=== PATIENT | female | born 1960 | race Caucasian/White ===

== ENCOUNTER 2020-12-17 13:07 | Emergency (ER) | payer MEDICAID ==
[~2020-12-17] VITALS: Ht 175.3 cm; Wt 54.5 kg
[~2020-12-17 13:07] MED LIST: ALPR0.5T PO; ARIP5TAB13 PO; BUPR150T22 PO; DEXT30TA PO; HYDR1TAB53 PO; LEVO200T5 PO; PARO40TA3 PO
--- NOTE | 2020-12-17 14:28 | NUR ---
ROSANNA ANNE FROM HOME WHERE SIGNIFICANT OTHER NANCY SU ([phone]) AND FRIEND WHO IS AN DOOR ASSEMBLER DANNY LI ([phone]) STATE A SIGNIFICANT CHANGE IN MENTATION OVER THE PAST 2 DAYS. IT IS STATED THAT PT IS NORMALLY AXOX4 AND TODAY AXOX2.
[2020-12-17] MEDS ORDERED: LORazepam 1MG TABLET PO ONE (14:30)
[2020-12-17 14:49] LABS: BASOPHILS % (AUTO) 0 % (0-1); EOSINOPHILS % (AUTO) 0 % (1-7); LYMPHOCYTES % (AUTO) 18 % (22-44); MEAN CORPUSCULAR HEMOGLOBIN 34.2 pg (27.0-34.8); MEAN CORPUSCULAR HGB CONC 33.7 g/dL (32.4-35.8); MEAN PLATELET VOLUME 6.7 fL (7.4-10.4); MONOCYTES % (AUTO) 11 % (2-9); NEUTROPHILS % (AUTO) 70 % (42-75); PLATELET COUNT 369 x10^3/uL (130-400); RED BLOOD COUNT 4.25 x10^6/uL (3.82-5.3); RED CELL DISTRIBUTION WIDTH 15.1 % (9.6-15.2)
--- NOTE | 2020-12-17 14:55 | NUR ---
OBTAINED URINE, SENT TO LAB, BACK TO BED, GAIT SLOW AND UNSTEADY WITH SBA
[2020-12-17 14:58] LABS: ALBUMIN 3.7 g/dL (3.4-5.0); ANION GAP 11 mmol/L (5-15); CALCIUM 9.1 mg/dL (8.5-10.1); CHLORIDE 109 mmol/L (98-107)
[2020-12-17 15:02] LABS: SALICYLATE LEVEL < 1.7 mg/dL (2.8-20.0)
[2020-12-17 15:12] LABS: ALANINE AMINOTRANSFERASE 23 U/L (12-78); ALKALINE PHOSPHATASE 155 U/L (45-117); BILIRUBIN,TOTAL 0.6 mg/dL (0.2-1.0); CREATININE 0.74 mg/dL (0.55-1.02); TOTAL PROTEIN 7.2 g/dL (6.4-8.2)
[2020-12-17 15:20] LABS: AMPHETAMINE SCREEN, URINE Negative (Negative); BARBITURATE SCREEN, URINE Negative (Negative); BENZODIAZEPINE SCREEN, URINE Negative (Negative); CANNABINOID SCREEN, URINE Negative (Negative); COCAINE SCREEN, URINE Negative (Negative); METHADONE SCREEN, URINE Negative (Negative); OPIATE SCREEN, URINE Negative (Negative)
--- NOTE | 2020-12-17 16:02 | NUR ---
MEAL PROVIDED FOR PATIENT
[2020-12-17 16:22] LABS: FREE T4 (FREE THYROXINE) 1.43 ng/dL (0.76-1.46)
[2020-12-17] MEDS ORDERED: IBUPROFEN 200 MG TABLET ONE (16:28)
[2020-12-17] MEDS ORDERED: IBUPROFEN 200 MG TABLET PO ONE (16:30)
--- NOTE | 2020-12-17 16:32 | NUR ---
PT C/O OF HEADACHE, DISCUSSED WITH , ORDERS RECEIVED, PT IN X RAY
--- NOTE | 2020-12-17 17:58 | NUR ---
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 SPOKE W/ VICKI FROM TELEPSYCH. MONITOR SET UP IN ROOM.
--- NOTE | 2020-12-17 17:59 | NUR ---
PT UP TO BATHROOM, SCATTERED SENTENCES, STATES SHE IS HEARING VOICES, AWAITING TELE PHSY TO EVEAL
--- NOTE | 2020-12-17 18:53 | NUR ---
REPORT TO DYANA PATTERSON, PLAN OF CARE DISCUSSED
[2020-12-17 20:22] VITALS: BP 145/88
== END 2020-12-17 20:24 | disposition home or self-care (01) ==
LOC: ED 14:34
DX: F41.1 Generalized anxiety disorder (principal); R41.0 Disorientation, unspecified; E03.9 Hypothyroidism, unspecified; F17.200 Nicotine dependence, unspecified, uncomplicated
CPT/HCPCS: 36415; 70450; 80053; 80299; 80307; 80320; 80329; 84439; 84443; 84481; 85025; 99284; G0480